=== PATIENT | female | born 1990 | race Caucasian/White ===

== ENCOUNTER 2022-12-01 20:31 | Emergency (ER) | payer OTHER, SELFPAY ==
[2022-12-01] MEDS ORDERED: Tetracaine 0.5% PF 4 ML BOT ONE (21:16)
[2022-12-01] MEDS ORDERED: Fluorescein Opthalmic Strip ONE (21:17)
== END 2022-12-01 21:53 | disposition home or self-care (01) ==
LOC: CSHERS 20:31
DX: S05.01XA Injury of conjunctiva and corneal abrasion without foreign body, right eye, initial encounter (principal); X58.XXXA Exposure to other specified factors, initial encounter
CPT/HCPCS: 99283